=== PATIENT | male | born 1995 | race Caucasian/White ===

== ENCOUNTER 2021-05-24 16:50 | Emergency (ER) | payer OTHER ==
[2021-05-24] MEDS ORDERED: LODINE CAP 300300 MG PO (18:57)
== END 2021-05-24 19:06 | disposition home or self-care (01) ==
LOC: ER1 16:50
DX: S50.02XA Contusion of left elbow, initial encounter (principal); I10 Essential (primary) hypertension; Z88.0 Allergy status to penicillin; Z88.2 Allergy status to sulfonamides; F17.290 Nicotine dependence, other tobacco product, uncomplicated; W19.XXXA Unspecified fall, initial encounter; Y92.410 Unspecified street and highway as the place of occurrence of the external cause
CPT/HCPCS: 73080; 99283

== ENCOUNTER 2021-10-05 20:31 | Inpatient (IN) | payer OTHER ==
[~2021-10-05] VITALS: Ht 182.9 cm; Wt 103.4 kg
[~2021-10-05 20:31] MED LIST: LODINE CAP 300300 MG PO
[2021-10-05 21:31] LABS: HEMOGLOBIN 19.3 gm/dl (14.0-17.5); RED BLOOD COUNT 5.27 M/UL (4.20-5.50); WHITE BLOOD COUNT 19.4 K/UL (4.5-11.0)
[2021-10-05 21:55] LABS: BUN/CREATININE RATIO 10 (0-10)
[2021-10-06] MEDS ORDERED: VORT5TAB PO (10:36)
[2021-10-06] MEDS ORDERED: OMEPRAZOLE20 MG PO (10:36)
[2021-10-06] MEDS ORDERED: LOPRESSOR50 MG PO (10:37)
[2021-10-06] MEDS ORDERED: IBU600 MG PO (10:37)
[2021-10-07 02:54] LABS: WHITE BLOOD COUNT 14.7 K/UL (4.5-11.0)
[2021-10-07 02:55] LABS: RED BLOOD COUNT 4.42 M/UL (4.20-5.50)
[2021-10-07 03:25] LABS: BUN/CREATININE RATIO 12 (0-10)
[2021-10-08 02:16] LABS: HEMOGLOBIN 15.6 gm/dl (14.0-17.5); RED BLOOD COUNT 4.32 M/UL (4.20-5.50); WHITE BLOOD COUNT 11.7 K/UL (4.5-11.0)
[2021-10-08 02:37] LABS: BUN/CREATININE RATIO 8 (0-10)
== END 2021-10-08 12:02 | disposition home or self-care (01) | DRG 439 ==
LOC: ER1 20:31 → CDU 10-06 00:28 → PROG CARE 10-06 00:28
PROVIDERS: Internal Medicine; Student in an Organized Health Care Education/Training Program; ADMIT Internal Medicine
DX: K85.20 Alcohol induced acute pancreatitis without necrosis or infection (principal); F10.139 Alcohol abuse with withdrawal, unspecified; G40.509 Epileptic seizures related to external causes, not intractable, without status epilepticus; E87.2 Acidosis; Z20.822 Contact with and (suspected) exposure to COVID-19; I10 Essential (primary) hypertension; F41.9 Anxiety disorder, unspecified; K21.9 Gastro-esophageal reflux disease without esophagitis; Z98.890 Other specified postprocedural states
CPT/HCPCS: 36415; 36600; 71045; 80053; 80307; 81001; 82550; 82553; 82803; 83605; 83690; 83735; 84100; 84484; 85025; 86140; 93005; 96372; 96374; 96375; 96376; 99285; C9113; G0480; J1200; J1650; J1885; J2060; J2270; J2405; J3360; J3411; J7030; Q9967

== ENCOUNTER → 2022-01-08 | Outpatient (CLI) | payer OTHER ==
[~2022-01-08] MED LIST changes: +IBU600 MG PO; +LOPRESSOR50 MG PO; +OMEPRAZOLE20 MG PO; +VORT5TAB PO
== END ==
LOC: RAD 16:09
DX: S69.91XA Unspecified injury of right wrist, hand and finger(s), initial encounter (principal); S49.91XA Unspecified injury of right shoulder and upper arm, initial encounter
CPT/HCPCS: 73030; 73110; 73130